=== PATIENT | female | born 1940 | race Asian ===

== ENCOUNTER → 2023-06-30 | Outpatient (CLI) | payer MEDICARE, OTHER | END | disposition home or self-care (01) | LOC: RADMN 12:58 | PROVIDERS: ATTEND Internal Medicine | DX: J44.9 Chronic obstructive pulmonary disease, unspecified (principal); Z20.1 Contact with and (suspected) exposure to tuberculosis; L72.0 Epidermal cyst | CPT/HCPCS: 71046; 76882; 76999 ==

== ENCOUNTER → 2024-04-28 | Outpatient (CLI) | payer MEDICARE, OTHER ==
[~2024-04-28] MED LIST: AMLO-257 PO; ASPI-1444 PO; CETI-450 PO; ERGO500054 PO; HYDR-4268 TP; KETO15CR2 TP; MELA5TAB40 PO; MIRT-89 PO; RALO60 PO; ROSU20TA98 PO; TELM40 PO; TOLT2CAP PO
== END | disposition home or self-care (01) ==
LOC: RADPV 15:14
PROVIDERS: ATTEND Internal Medicine
DX: I35.0 Nonrheumatic aortic (valve) stenosis (principal); I50.9 Heart failure, unspecified
CPT/HCPCS: 93306